=== PATIENT | female | born 1985 | race Caucasian/White ===

== ENCOUNTER 2018-07-19 15:05 | Outpatient (CLI) | payer MEDICAID ==
[~2018-07-19] VITALS: Ht 170.2 cm; Wt 79.5 kg
[2018-07-19 16:48] LABS: MICROSCOPIC INDICATED
[2018-07-26] MEDS ORDERED: PREN1TAB60 PO (08:04)
[2018-07-27] MEDS ORDERED: IBUP-1223 PO (11:41)
== END 2018-07-19 17:07 | disposition home or self-care (01) ==
LOC: LDOP 15:05
PROVIDERS: ATTEND Obstetrics & Gynecology
DX: O42.90 Premature rupture of membranes, unspecified as to length of time between rupture and onset of labor, unspecified weeks of gestation (principal); O26.893 Other specified pregnancy related conditions, third trimester; R10.9 Unspecified abdominal pain; M54.9 Dorsalgia, unspecified; Z3A.38 38 weeks gestation of pregnancy
CPT/HCPCS: 59025; 81001; 84112; 99201; G0463